=== PATIENT | female | born 1945 | race American Indian/Alaskan Native ===

== ENCOUNTER 2018-11-16 08:58 | Observation (INO) | payer MEDICARE ==
[2018-11-16] MEDS ORDERED: TYLENOL PO ONE (09:12)
[2018-11-16] MEDS ORDERED: NACL 0.9% 500 ML 500 ML IV ONE (09:12)
--- NOTE | 2018-11-16 09:14 | Emergency Department Report ---
ED GI Bleed HPI - General Chief complaint: GI Bleed Stated complaint: RECTAL BLEEDING Time Seen by Provider: 11/16/18 09:00 Source: patient, EMS (ems notes not available at time of chart dictation), RN notes reviewed Mode of arrival: Stretcher Limitations: No Limitations - History of Present Illness Initial comments: This is a 73-year-old female. This patient is not known to this provider previously. The patient does not know if she has a primary care doctor. Her past medical history includes COPD, and diverticulosis. Reports her last colonoscopy was performed in 2015, and [facility]. Presents to the ER with a complaint of sudden nontraumatic dark red rectal bleeding which started this evening. This is accompanied by chronic diffuse abdominal cramping, present 1 year. Patient reports not taking any systemic anticoagulation. She denies vomiting. She denies chest pain, and denies new or different shortness of breath. Symptoms constant, does not radiate anywhere, do not have exacerbating oral infectious. MD complaint: gross hematochezia -: Sudden Location: diffuse Quality: cramping Consistency: constant Improves with: none Worsens with: none Context: history of GI bleed - Related Data Home Medications Medication Instructions Recorded Confirmed Last Taken Acetaminophen [Tylenol Extra 500 mg PO BID 01/07/18 01/07/18 Unknown Strength] Primidone [Mysoline] 250 mg PO BID 01/07/18 01/07/18 Unknown Previous Rx's Medication Instructions Recorded Last Taken Type AtorvaSTATin [Lipitor] 40 mg PO QHS #30 tab 01/09/18 Unknown Rx Famotidine [Pepcid] 20 mg PO BID #60 tablet 01/09/18 Unknown Rx Fluticasone/Salmeterol [Advair 1 puff IH BID #1 disk.w.dev 01/09/18 Unknown Rx Diskus 250-50 mcg] Ondansetron [Zofran TAB] 4 mg PO Q8HR PRN #15 tablet 01/09/18 Unknown Rx Prednisone [predniSONE 10 mg 10 mg PO .TAPER #1 tab.ds.pk 01/09/18 Unknown Rx (6-Day Pack, 21 Tabs)] guaiFENesin/DEXTROMETHORPHAN 1 each PO TID PRN #15 capsule 01/09/18 Unknown Rx [Robitussin Nsylg-Hyyfl-Khyy Dm] levoFLOXacin [Levaquin TAB] 500 mg PO Q24HR #5 tablet 01/09/18 Unknown Rx Allergies Allergy/AdvReac Type Severity Reaction Status Date / Time aspirin Allergy Unknown Verified 01/07/18 21:52 ED Review of Systems ROS: Stated complaint: RECTAL BLEEDING Other details as noted in HPI Constitutional: denies: fever Eyes: denies: eye discharge ENT: congestion Respiratory: cough (chronic) Cardiovascular: denies: syncope Gastrointestinal: abdominal pain, hematochezia Genitourinary: denies: dysuria Musculoskeletal: arthralgia (chronic left upper extremity) Skin: denies: lesions Neurological: weakness Psychiatric: anxiety ED Past Medical Hx - Past Medical History Hx COPD: Yes - Surgical History Hx Cholecystectomy: Yes - Social History Smoking Status: Former Smoker - Medications Home Medications: Home Medications Medication Instructions Recorded Confirmed Last Taken Type Acetaminophen [Tylenol Extra 500 mg PO BID 01/07/18 01/07/18 Unknown History Strength] Primidone [Mysoline] 250 mg PO BID 01/07/18 01/07/18 Unknown History AtorvaSTATin [Lipitor] 40 mg PO QHS #30 tab 01/09/18 Unknown Rx Famotidine [Pepcid] 20 mg PO BID #60 tablet 01/09/18 Unknown Rx Fluticasone/Salmeterol [Advair 1 puff IH BID #1 disk.w.dev 01/09/18 Unknown Rx Diskus 250-50 mcg] Ondansetron [Zofran TAB] 4 mg PO Q8HR PRN #15 tablet 01/09/18 Unknown Rx Prednisone [predniSONE 10 mg 10 mg PO .TAPER #1 tab.ds.pk 01/09/18 Unknown Rx (6-Day Pack, 21 Tabs)] guaiFENesin/DEXTROMETHORPHAN 1 each PO TID PRN #15 capsule 01/09/18 Unknown Rx [Robitussin Ptdsc-Yslgb-Bfag Dm] levoFLOXacin [Levaquin TAB] 500 mg PO Q24HR #5 tablet 01/09/18 Unknown Rx ED Physical Exam - General Limitations: Other (patient appears anxious and tremulous) General appearance: alert, anxious - Head Head exam: Present: atraumatic, normocephalic - Eye Eye exam: Present: normal appearance, EOMI. Absent: nystagmus - ENT ENT exam: Present: normal exam, normal orophraynx, mucous membranes moist, normal external ear exam - Neck Neck exam: Present: normal inspection, full ROM. Absent: tenderness, meningismus - Respiratory Respiratory exam: Present: normal lung sounds bilaterally. Absent: respiratory distress - Cardiovascular Cardiovascular Exam: Present: regular rate, normal rhythm, normal heart sounds. Absent: bradycardia, tachycardia, irregular rhythm, systolic murmur, diastolic murmur, rubs, gallop - GI/Abdominal GI/Abdominal exam: Present: soft. Absent: distended, tenderness, guarding, rebound, rigid, pulsatile mass - Rectal Rectal exam: Present: other (external hemorrhoids noted. Dark red blood noted on rectal examination. Chaperoned by nurse Marcia Jackson) - Extremities Exam Extremities exam: Present: normal inspection, full ROM, other (2+ pulses noted in the bilateral upper, lower extremities. Compartments soft. No long bony tenderness. The pelvis is stable.). Absent: calf tenderness - Back Exam Back exam: Present: normal inspection, full ROM. Absent: tenderness, CVA tenderness (R), CVA tenderness (L), paraspinal tenderness, vertebral tenderness - Neurological Exam Neurological exam: Present: alert, other (Extraocular movements intact. Tongue midline. No facial droop. Facial sensation intact to light touch in the V1, V2, V3 distribution bilaterally. 5 and 5 strength in 4 extremities.. Sensation is intact to light touch in 4 extremities.). Absent: motor sensory deficit - Psychiatric Psychiatric exam: Present: anxious - Skin Skin exam: Present: warm, dry, intact, normal color. Absent: rash ED Course Vital Signs 11/16/18 11/16/18 11/16/18 09:20 10:52 12:01 Temperature 98.2 F Pulse Rate 88 75 77 Respiratory 31 H 27 H 27 H Rate Blood Pressure 141/93 Blood Pressure 141/93 139/90 132/78 [Right] O2 Sat by Pulse 96 96 96 Oximetry - Reevaluation(s) Reevaluation #1: 11/16/18 09:40 Differential diagnosis, including but not limited to, diverticulosis, diverticulitis, angiodysplasia, malignancy, constipation Assessment and plan: 73-year-old female with known history of diverticulosis, now with dark red blood per rectum, hemodynamically stable, soft abdomen, reported abdominal pain for one year. Currently, [address] scanner is down, and therefore a CT angiogram of the abdomen/pelvis is not feasible. We will treat the patient's symptoms, establish multiple IV access, obtained type and screen, and appropriate screening laboratory studies. We will obtain a CT scan of the abdomen and pelvis, and admitted to the medical service once initial diagnostics have resulted. The case was discussed with gastroenterology, Dr. Heath Domínguez, who agrees with this plan of care, and indicates his group can follow in consultation. I discussed this with patient, who indicated agreement with the plan, and understood me for admission. Reevaluation #2: 11/16/18 12:07 Dr Daniels to admit Reevaluation #3: 11/16/18 13:52 inpatient team agrees to follow up on ct a/p ED Medical Decision Making - Lab Data Result diagrams: 11/16/18 09:43 11/16/18 09:43 Vital Signs 11/16/18 09:20 Temperature 98.2 F Pulse Rate 88 Respiratory 31 H Rate Blood Pressure 141/93 Blood Pressure 141/93 [Right] O2 Sat by Pulse 96 Oximetry - EKG Data -: EKG Interpreted by Me EKG shows normal: sinus rhythm Rate: normal - EKG Data When compared to previous EKG there are: no significant change Interpretation: no acute changes 11/16/18 11:38 Compared to EKG from December 2017. Motion artifact, low voltage, sinus, 79 bpm, normal axis, QTC 477 ms, no endorsement of chest pain, this is an abnormal EKG, it is not consistent with ST elevation myocardial infarction. Critical care attestation.: If time is entered above; I have spent that time in minutes in the direct care of this critically ill patient, excluding procedure time. ED Disposition Clinical Impression: LGI bleed Disposition: OP ADMIT IP TO THIS HOSP Is pt being admited?: Yes Does the pt Need Aspirin: No Condition: Fair
[2018-11-16 10:25] LABS: Basophils # (Auto) 0.1 K/mm3 (0.0-0.1); Basophils % (Auto) 0.9 % (0.0-1.8); Eosinophils # (Auto) 0.1 K/mm3 (0.0-0.4); Eosinophils % (Auto) 1.4 % (0.0-4.3); Hematocrit 42.6 % (30.3-42.9); Lymphocytes # (Auto) 2.2 K/mm3 (1.2-5.4); Lymphocytes % (Auto) 20.9 % (13.4-35.0); Mean Corpuscular HGB Conc 35 % (30-34); Mean Corpuscular Hemoglobin 32 pg (28-32); Mean Corpuscular Volume 90 fl (79-97); Monocytes # (Auto) 0.8 K/mm3 (0.0-0.8); Monocytes % (Auto) 7.9 % (0.0-7.3); Red Blood Count 4.72 M/mm3 (3.65-5.03); Red Cell Distribution Width 12.3 % (13.2-15.2)
[2018-11-16 10:26] LABS: Platelet Count 220 K/mm3 (140-440)
[2018-11-16 10:36] LABS: INR 0.96 (0.87-1.13)
[2018-11-16 10:37] LABS: Partial Thromboplastin Time 20.2 Sec. (24.2-36.6)
[2018-11-16 10:52] LABS: Alanine Aminotransferase 15 units/L (7-56); Albumin 3.4 g/dL (3.9-5); BUN/Creatinine Ratio 28; Blood Urea Nitrogen 11 mg/dL (7-17); Calcium 8.4 mg/dL (8.4-10.2); Hemolysis Index 14
[2018-11-16 12:18] LABS: Bilirubin,Urine NEG (Negative); Blood,Urine SM (Negative); Color,Urine Yellow (Yellow); Mucus,Urine FEW /HPF; Protein,Urine <15 mg/dL mg/dL (Negative); Urobilinogen,Urine < 2.0 mg/dL (<2.0)
[2018-11-16] MEDS ORDERED: CARAFATE PO ONE (13:49)
[2018-11-16] MEDS ORDERED: CARAFATE ONE (13:56)
[2018-11-16] MEDS ORDERED: TYLENOL PO PRN (17:32)
[2018-11-16] MEDS ORDERED: SODIUM CHLORIDE FLUSH SYRINGE 10 ML IV PRN (17:32)
[2018-11-16] MEDS: DILAUDID IV PRN ×2 (19:02→23:23)
[2018-11-16] MEDS: D5/0.45NS 1,000 ML IV SCH (19:03)
--- NOTE | 2018-11-16 19:08 | Cat Scan Report ---
CT abdomen pelvis w con INDICATION / CLINICAL INFORMATION: Generalized abd pain. gi bleed. TECHNIQUE: Axial CT imaging of abdomen and pelvis was performed with IV contrast only. Coronal and sagittal refo rmatted imaging obtained and reviewed. All CT scans at this location are performed using CT dose redu ction for ALARA by means of automated exposure control. COMPARISON: None available. FINDINGS: CT abdomen with contrast demonstrates grossly normal appearance of the liver, spleen, pancreas, kidne ys, and adrenal glands. Incidentally noted is a small simple cyst in the upper pole of the right kidn ey noted 1.6 cm. Prior cholecystectomy. No biliary dilatation identified. CT pelvis with contrast demonstrates prominent diverticulosis throughout the sigmoid and descending c olon. There is subtle inflammatory change in the proximal sigmoid colon suggesting mild diverticuliti s. No pelvic mass, free fluid, or other inflammatory change identified. The remainder of the GI tract appears within normal limits. No appendix is identified. Visualized lung bases are clear. Review of osseous structures shows diffuse spondylytic change and multilevel degenerative disc disea se throughout the lumbar spine. IMPRESSION: 1. Mild sigmoid diverticulitis. Prominent diverticulosis throughout the sigmoid and descending colon. Signer Name: Dea Rees MD Signed: 11/16/2018 7:03 PM Workstation Name: [id number]
[2018-11-16] MEDS: ZOFRAN IV PRN (19:11)
[2018-11-16 19:29] LABS: Hemoglobin 14.5 gm/dl (10.1-14.3)
--- NOTE | 2018-11-16 21:47 | History and Physical Report ---
History of Present Illness Date of examination: 11/16/18 Date of admission: 11/16/18 12:07 Chief complaint: Bright red blood per rectum since yesterday evening History of present illness: 73-year-old -[place] female with history of diverticulosis and lower GI bleed in the past, also history of asthma, hyperlipidemia comes in for bright red blood per rectum since yesterday. Diffuse cramping abdominal pain present. Patient says she has no similar episodes in the past but no colectomy was done. No lightheadedness or syncope. No chest pain. No diaphoresis Past Medical History COPD Diverticulosis HLD Surgical History Cholecystectomy Social History Smoking Status: Former Smoker Family history Htn Review of Systems ROS: Stated complaint: RECTAL BLEEDING Other details as noted in HPI Constitutional: denies: fever Eyes: denies: eye discharge ENT: congestion Respiratory: cough (chronic) Cardiovascular: denies: syncope Gastrointestinal: abdominal pain, hematochezia Genitourinary: denies: dysuria Musculoskeletal: arthralgia (chronic left upper extremity) Skin: denies: lesions Neurological: weakness Psychiatric: anxiety Medications and Allergies Allergies Allergy/AdvReac Type Severity Reaction Status Date / Time aspirin Allergy Unknown Verified 01/07/18 21:52 Home Medications Medication Instructions Recorded Confirmed Last Taken Type Acetaminophen [Tylenol Extra 500 mg PO BID 01/07/18 11/16/18 Unknown History Strength] Primidone [Mysoline] 250 mg PO BID 01/07/18 11/16/18 Unknown History AtorvaSTATin [Lipitor] 40 mg PO QHS #30 tab 01/09/18 11/16/18 Unknown Rx Famotidine [Pepcid] 20 mg PO BID #60 tablet 01/09/18 11/16/18 Unknown Rx Fluticasone/Salmeterol [Advair 1 puff IH BID #1 disk.w.dev 01/09/18 11/16/18 Unknown Rx Diskus 250-50 mcg] Ondansetron [Zofran TAB] 4 mg PO Q8HR PRN #15 tablet 01/09/18 11/16/18 Unknown Rx Prednisone [predniSONE 10 mg 10 mg PO .TAPER #1 tab.ds.pk 01/09/18 11/16/18 Unknown Rx (6-Day Pack, 21 Tabs)] guaiFENesin/DEXTROMETHORPHAN 1 each PO TID PRN #15 capsule 01/09/18 11/16/18 Unknown Rx [Robitussin Omtdd-Srkoh-Wcgi Dm] levoFLOXacin [Levaquin TAB] 500 mg PO Q24HR #5 tablet 01/09/18 11/16/18 Unknown Rx Active Meds: Active Medications Acetaminophen (Tylenol) 650 mg PO Q4H PRN PRN Reason: Pain MILD(1-3)/Fever >100.5/DEMPSEY Famotidine (Pepcid) 20 mg IV BID DORIS Hydromorphone HCl (Dilaudid) 0.5 mg IV Q3H PRN PRN Reason: Pain , Severe (7-10) Last Admin: 11/16/18 19:02 Dose: 0.5 mg Documented by: Dextrose/Sodium Chloride (D5/0.45ns) 1,000 mls @ 100 mls/hr IV DIRECT DORIS Last Admin: 11/16/18 19:03 Dose: 100 mls/hr Documented by: Metoclopramide HCl (Reglan) 10 mg IV Q6H PRN PRN Reason: Nausea And Vomiting Ondansetron HCl (Zofran) 4 mg IV Q8H PRN PRN Reason: Nausea And Vomiting Last Admin: 11/16/18 19:11 Dose: 4 mg Documented by: Sodium Chloride (Sodium Chloride Flush Syringe 10 Ml) 10 ml IV BID DORIS Sodium Chloride (Sodium Chloride Flush Syringe 10 Ml) 10 ml IV PRN PRN PRN Reason: LINE FLUSH Exam - Constitutional Vitals: Temp Pulse Resp BP Pulse Ox 98.1 F 74 24 126/75 90 11/16/18 20:34 11/16/18 20:34 11/16/18 20:34 11/16/18 20:34 11/16/18 20:34 General appearance: Present: no acute distress, well-nourished - EENT Eyes: Present: PERRL ENT: hearing intact, clear oral mucosa - Neck Neck: Present: supple, normal ROM - Respiratory Respiratory effort: normal Respiratory: bilateral: CTA - Cardiovascular Heart rate: 78 Rhythm: regular Heart Sounds: Present: S1 & S2. Absent: rub, click - Extremities Extremities: no ischemia, pulses intact, pulses symmetrical, No edema Peripheral Pulses: within normal limits - Abdominal General gastrointestinal: Present: soft, non-tender, non-distended, normal bowel sounds Female genitourinary: Present: normal - Rectal Rectal Exam: stool bloody - Integumentary Integumentary: Present: clear, warm, dry - Musculoskeletal Musculoskeletal: gait normal, strength equal bilaterally - Psychiatric Psychiatric: appropriate mood/affect, intact judgment & insight - Neurologic Neurologic: CNII-XII intact, moves all extremities - Allied Health Allied health notes reviewed: nursing, case management Results - Labs CBC & Chem 7: 11/16/18 18:53 11/16/18 09:43 Labs: Laboratory Last Values WBC 10.3 K/mm3 (4.5-11.0) 11/16/18 09:43 RBC 4.72 M/mm3 (3.65-5.03) 11/16/18 09:43 Hgb 14.5 gm/dl (10.1-14.3) H 11/16/18 18:53 Hct 42.0 % (30.3-42.9) 11/16/18 18:53 MCV 90 fl (79-97) 11/16/18 09:43 MCH 32 pg (28-32) 11/16/18 09:43 MCHC 35 % (30-34) H 11/16/18 09:43 RDW 12.3 % (13.2-15.2) L 11/16/18 09:43 Plt Count 220 K/mm3 (140-440) 11/16/18 09:43 Lymph % (Auto) 20.9 % (13.4-35.0) 11/16/18 09:43 [place] % (Auto) 7.9 % (0.0-7.3) H 11/16/18 09:43 Eos % (Auto) 1.4 % (0.0-4.3) 11/16/18 09:43 Baso % (Auto) 0.9 % (0.0-1.8) 11/16/18 09:43 Lymph # 2.2 K/mm3 (1.2-5.4) 11/16/18 09:43 [place] # 0.8 K/mm3 (0.0-0.8) 11/16/18 09:43 Eos # 0.1 K/mm3 (0.0-0.4) 11/16/18 09:43 Baso # 0.1 K/mm3 (0.0-0.1) 11/16/18 09:43 Seg Neutrophils % 68.9 % (40.0-70.0) 11/16/18 09:43 Seg Neutrophils # 7.1 K/mm3 (1.8-7.7) 11/16/18 09:43 PT 12.5 Sec. (12.2-14.9) 11/16/18 09:43 INR 0.96 (0.87-1.13) 11/16/18 09:43 APTT 20.2 Sec. (24.2-36.6) L 11/16/18 09:43 Sodium 143 mmol/L (137-145) 11/16/18 09:43 Potassium 3.5 mmol/L (3.6-5.0) L 11/16/18 09:43 Chloride 105.2 mmol/L (98-107) 11/16/18 09:43 Carbon Dioxide 23 mmol/L (22-30) 11/16/18 09:43 18 mmol/L 11/16/18 09:43 BUN 11 mg/dL (7-17) 11/16/18 09:43 0.4 mg/dL (0.7-1.2) L 11/16/18 09:43 Estimated GFR > 60 ml/min 11/16/18 09:43 28 % 11/16/18 09:43 Glucose 92 mg/dL (65-100) 11/16/18 09:43 4.7 % (4-6) 11/16/18 18:53 Calcium 8.4 mg/dL (8.4-10.2) 11/16/18 09:43 Magnesium 2.00 mg/dL (1.7-2.3) 11/16/18 09:43 0.60 mg/dL (0.1-1.2) 11/16/18 09:43 AST 16 units/L (5-40) 11/16/18 09:43 ALT 15 units/L (7-56) 11/16/18 09:43 89 units/L (35-129) 11/16/18 09:43 6.6 g/dL (6.3-8.2) 11/16/18 09:43 3.4 g/dL (3.9-5) L 11/16/18 09:43 1.1 % 11/16/18 09:43 33 units/L (13-60) 11/16/18 09:43 Yellow (Yellow) 11/16/18 11:38 Clear (Clear) 11/16/18 11:38 5.0 (5.0-7.0) 11/16/18 11:38 Ur Specific [place] 1.021 (1.003-1.030) 11/16/18 11:38 <15 mg/dl mg/dL (Negative) 11/16/18 11:38 Neg mg/dL (Negative) 11/16/18 11:38 Neg mg/dL (Negative) 11/16/18 11:38 Sm (Negative) 11/16/18 11:38 Neg (Negative) 11/16/18 11:38 Neg (Negative) 11/16/18 11:38 < 2.0 mg/dL (<2.0) 11/16/18 11:38 Ur Leukocyte Esterase Neg (Negative) 11/16/18 11:38 1.0 /HPF (0.0-6.0) 11/16/18 11:38 2.0 /HPF (0.0-6.0) 11/16/18 11:38 U Epithel Cells (Auto) 1.0 /HPF (0-13.0) 11/16/18 11:38 Few /HPF 11/16/18 11:38 Blood Type O POSITIVE 11/16/18 10:16 Antibody Screen Negative 11/16/18 10:16 - Imaging and Cardiology EKG: report reviewed (sinus rhythm heart rate of 78/m) CT scan - abdomen: report reviewed Imaging and Cardiology: CT abdomen IMPRESSION: 1. Mild sigmoid diverticulitis. Prominent diverticulosis throughout the sigmoid and descending colon. Assessment and Plan Advance Directives: Yes (full code) VTE prophylaxis?: Chemical, Mechanical Plan of care discussed with patient/family: Yes - Patient Problems (1) Lower gastrointestinal bleed Current Visit: Yes Status: Acute Plan to address problem: Monitor hemoglobin and hematocrit every 8 hours Transfuse if necessary GI consult requested Patient apparently had multiple diverticular bleeds No colectomy was done (2) COPD (chronic obstructive pulmonary disease) Current Visit: Yes Status: Chronic Qualifiers: COPD type: unspecified COPD Qualified Code(s): J44.9 - Chronic obstructive pulmonary disease, unspecified Plan to address problem: Continue nebulizer treatments (3) GERD (gastroesophageal reflux disease) Current Visit: Yes Status: Chronic Qualifiers: Esophagitis presence: with esophagitis Qualified Code(s): K21.0 - Gastro- esophageal reflux disease with esophagitis Plan to address problem: IV famotidine for now (4) Hyperlipidemia Current Visit: Yes Status: Acute Plan to address problem: Hold statins (5) Malnutrition Current Visit: Yes Status: Chronic Qualifiers: Protein-calorie malnutrition severity: mild Plan to address problem: Dietitian consults requested (6) Diverticulitis Current Visit: Yes Status: Acute Plan to address problem: No evidence of diverticulitis Extensive diverticulosis No antibiotics needed at this point (7) DVT prophylaxis Current Visit: Yes Status: Acute Plan to address problem: On SCDs and GI prophylaxis
[2018-11-16] MEDS ORDERED: PULMICORT IH SCH (22:15)
[2018-11-16] MEDS ORDERED: NON-FORMULARY (Fluticasone/Salmeterol [Advair Diskus 250-50 Mcg] 1 PUFF) IH SCH (22:15)
[2018-11-16] MEDS ORDERED: BROVANA NEBU IH SCH (22:15)
[2018-11-16] MEDS: PEPCID IV SCH (23:10)
[2018-11-16] MEDS: SODIUM CHLORIDE FLUSH SYRINGE 10 ML IV SCH (23:12)
[2018-11-16] MEDS: REGLAN IV PRN (23:22)
[2018-11-17] MEDS: D5/0.45NS 1,000 ML IV SCH (04:01)
[2018-11-17] MEDS: DILAUDID IV PRN (04:03)
[2018-11-17] MEDS: ZOFRAN IV PRN (04:03)
[2018-11-17 06:21] LABS: Basophils # (Auto) 0.1 K/mm3 (0.0-0.1); Basophils % (Auto) 0.6 % (0.0-1.8); Eosinophils % (Auto) 0.2 % (0.0-4.3); Hematocrit 40.4 % (30.3-42.9); Hemoglobin 13.8 gm/dl (10.1-14.3); Lymphocytes # (Auto) 1.7 K/mm3 (1.2-5.4); Lymphocytes % (Auto) 19.4 % (13.4-35.0); Mean Corpuscular HGB Conc 34 % (30-34); Mean Corpuscular Hemoglobin 32 pg (28-32); Mean Corpuscular Volume 92 fl (79-97); Monocytes # (Auto) 0.7 K/mm3 (0.0-0.8); Monocytes % (Auto) 7.9 % (0.0-7.3); Platelet Count 228 K/mm3 (140-440); Red Blood Count 4.37 M/mm3 (3.65-5.03); Red Cell Distribution Width 12.1 % (13.2-15.2)
[2018-11-17 06:43] LABS: BUN/Creatinine Ratio 20; Blood Urea Nitrogen 8 mg/dL (7-17); Calcium 8.4 mg/dL (8.4-10.2)
[2018-11-17 06:44] LABS: Alanine Aminotransferase 15 units/L (7-56); Albumin 3.7 g/dL (3.9-5); Hemolysis Index 10
[2018-11-17] MEDS ORDERED: DUONEB *Not for PRN Use IH SCH (08:00)
[2018-11-17] MEDS: REGLAN IV PRN (08:48)
[2018-11-17 09:56] LABS: Hematocrit 39.7 % (30.3-42.9); Hemoglobin 13.8 gm/dl (10.1-14.3)
[2018-11-17] MEDS: PEPCID IV SCH (10:04)
[2018-11-17] MEDS: SODIUM CHLORIDE FLUSH SYRINGE 10 ML IV SCH (10:05)
--- NOTE | 2018-11-17 11:12 | Consultation ---
REFERRING PHYSICIAN: Dr. Ronald Zabala. INDICATION: Rectal bleeding. HISTORY OF PRESENT ILLNESS: The patient is a 73-year-old black female presents with rectal bleeding. The patient reports she has had a history of rectal bleeding and reports a history of diverticular disease. She reports in 2016, she had 4 colonoscopies and had to be transfused. She reports though she has not had any rectal bleeding in over a year. The patient reports this morning she had a single bout of bright red blood per rectum with clots. She reports no recent diet or medication changes. She reports no upper GI symptoms including nausea, vomiting, heartburn, reflux, indigestion. The patient became concerned, was brought by her son to the Emergency Room. The patient reports that she has had no further bleeding. Denies any other specific GI complaints except for some lower abdominal cramping. PAST MEDICAL HISTORY: High cholesterol, COPD. PAST SURGICAL HISTORY: Status post cholecystectomy. MEDICATIONS: Reviewed and updated in chart. ALLERGIES: No known drug allergies. SOCIAL HISTORY: Former smoker. Denies alcohol. FAMILY HISTORY: Negative for colon cancer, IBD, or liver disease. REVIEW OF SYSTEMS: GENERAL: Reports mild weakness. HEENT: No visual complaints or tinnitus. PULMONARY: No shortness of breath. No cough. No chest pain. GASTROINTESTINAL: Reports rectal bleeding. All points of 13-point review of systems otherwise negative. PHYSICAL EXAMINATION: VITAL SIGNS: Temperature of 98.2, pulse 88, respirations 18, blood pressure 141/93. GENERAL: Fairly nourished black female in no acute distress. HEENT: Pupils are round and reactive. PULMONARY: Clear to auscultation bilaterally. CARDIOVASCULAR: Regular rhythm. Normal S1, S2. ABDOMEN: Positive bowel sounds, soft. SKIN: No obvious rashes. LABORATORY DATA: Labs pertinent for white count of 10.3, hemoglobin and hematocrit of 15 and 42.6, platelet count of 220. Coags within normal limits. Chem-7 within normal limits. LFTs within normal limits. ASSESSMENT: A 73-year-old black female with a reported history of diverticular bleed in the past, but not recently, now presents with one bout of rectal bleeding. The patient reports no further bleeding since that time. Her H and H is stable. Do suspect diverticular bleed. Management is noted below. PLAN: 1. Follow hematocrit and transfuse as needed. 2. PPI daily. 3. Avoid NSAIDs and aspirin. 4. We will hold on repeat colonoscopy unless signs of further active bleeding. 5. We will follow. JOB# [id number] ILIANA/NTS
[2018-11-17 11:35] VITALS: BP 146/85
--- NOTE | 2018-11-17 11:46 | Discharge Summary ---
Providers - Providers Date of Admission: 11/16/18 12:07 Attending physician: NELY MILLER MD 11/16/18 09:12 Consult to Physician [CONS] Urgent Comment: called answ. serv./ pradeep Consulting Provider: KEYLA KONG Physician Instructions: Reason For Exam: lgig, ? tics Primary care physician: DL SHEEHAN Hospitalization Condition: Fair Hospital course: (1) Lower gastrointestinal bleed Current Visit: Yes Status: Acute Plan to address problem: Monitor hemoglobin and hematocrit every 8 hours Transfuse if necessary GI consult requested Patient apparently had multiple diverticular bleeds No colectomy was done (2) COPD (chronic obstructive pulmonary disease) Current Visit: Yes Status: Chronic Qualifiers: COPD type: unspecified COPD Qualified Code(s): J44.9 - Chronic obstructive pulmonary disease, unspecified Plan to address problem: Continue nebulizer treatments (3) GERD (gastroesophageal reflux disease) Current Visit: Yes Status: Chronic Qualifiers: Esophagitis presence: with esophagitis Qualified Code(s): K21.0 - Gastro- esophageal reflux disease with esophagitis Plan to address problem: IV famotidine for now (4) Hyperlipidemia Current Visit: Yes Status: Acute Plan to address problem: Hold statins (5) Malnutrition Current Visit: Yes Status: Chronic Qualifiers: Protein-calorie malnutrition severity: mild Plan to address problem: Dietitian consults requested (6) Diverticulitis Current Visit: Yes Status: Acute Plan to address problem: No evidence of diverticulitis Extensive diverticulosis No antibiotics needed at this point (7) DVT prophylaxis Current Visit: Yes Status: Acute Plan to address problem: On SCDs and GI prophylaxis Disposition: DC- TO HOME OR SELFCARE Time spent for discharge: 33 mins Core Measure Documentation - Palliative Care Palliative Care/ Comfort Measures: Not Applicable - Core Measures Any of the following diagnoses?: none Exam - Constitutional Vitals: Temp Pulse Resp BP Pulse Ox 97.8 F 65 18 146/85 98 11/17/18 08:05 11/17/18 08:50 11/17/18 08:50 11/17/18 11:35 11/17/18 08:22 General appearance: Present: no acute distress, well-nourished - EENT Eyes: Present: PERRL ENT: hearing intact, clear oral mucosa - Neck Neck: Present: supple, normal ROM - Respiratory Respiratory effort: normal Respiratory: bilateral: CTA - Cardiovascular Heart Sounds: Present: S1 & S2. Absent: rub, click - Extremities Extremities: pulses symmetrical, No edema Peripheral Pulses: within normal limits - Abdominal General gastrointestinal: Present: soft, non-tender, non-distended, normal bowel sounds Female genitourinary: Present: normal - Integumentary Integumentary: Present: clear, warm, dry - Musculoskeletal Musculoskeletal: gait normal, strength equal bilaterally - Psychiatric Psychiatric: appropriate mood/affect, intact judgment & insight - Neurologic Neurologic: CNII-XII intact, moves all extremities Plan Follow up with: DL SHEEHAN MD [Primary Care Provider] - 3-5 Days Forms: Accompanied Note
--- NOTE | 2018-11-17 16:55 | Gastroenterology Consultation ---
History of Present Illness - Reason for Consult Consult date: 11/17/18 GI bleed Requesting physician: GEORGE CHIN - History of Present Illness This is a pleasant 73-year-old female medical history significant for prior diverticular bleed who presents with rectal bleeding. She reports that last year had multiple episodes of rectal bleeding requiring multiple admissions to the hospital however she reports that she has not had bleeding since last year until this time. She reports yesterday she saw some rectal bleeding, much lower volume than her prior rectal bleeds. She reports that she was diagnosed with diverticular bleeding in the past. She reports since overnight not seeing any active bleeding. Her hemoglobin is stable. Minimal abdominal pain. Past Medical History COPD Diverticulosis HLD Surgical History Cholecystectomy Social History Smoking Status: Former Smoker Family history Htn Home meds reviewed, reconciled, and updated Medications and Allergies Allergies Allergy/AdvReac Type Severity Reaction Status Date / Time aspirin Allergy Unknown Verified 01/07/18 21:52 Home Medications Medication Instructions Recorded Confirmed Last Taken Type Acetaminophen [Tylenol Extra 500 mg PO BID 01/07/18 11/16/18 Unknown History Strength] Primidone [Mysoline] 250 mg PO BID 01/07/18 11/16/18 Unknown History AtorvaSTATin [Lipitor] 40 mg PO QHS #30 tab 01/09/18 11/16/18 Unknown Rx Famotidine [Pepcid] 20 mg PO BID #60 tablet 01/09/18 11/16/18 Unknown Rx Fluticasone/Salmeterol [Advair 1 puff IH BID #1 disk.w.dev 01/09/18 11/16/18 Unknown Rx Diskus 250-50 mcg] Ondansetron [Zofran TAB] 4 mg PO Q8HR PRN #15 tablet 01/09/18 11/16/18 Unknown Rx guaiFENesin/DEXTROMETHORPHAN 1 each PO TID PRN #15 capsule 01/09/18 11/16/18 Unknown Rx [Robitussin Tsfor-Qtsnc-Nevo Dm] Review of Systems - Review of Systems All systems: negative Gastrointestinal: abdominal pain, BRBPR Exam - Constitutional Vital Signs: Temp Pulse Resp BP Pulse Ox 97.8 F 65 18 146/85 98 11/17/18 08:05 11/17/18 08:50 11/17/18 08:50 11/17/18 11:35 11/17/18 08:22 General appearance: no acute distress - EENT ENT: hearing intact - Neck Neck: supple - Respiratory Respiratory: bilateral: CTA - Cardiovascular Rhythm: regular - Gastrointestinal General gastrointestinal: Present: soft - Integumentary Integumentary: Present: dry - Neurologic Neurological: alert and oriented x3 - Psychiatric Psychiatric: appropriate mood/affect - Labs CBC & Chem 7: 11/17/18 09:40 11/17/18 04:07 Lab Results: Laboratory Results - last 24 hr 11/16/18 11/16/18 11/17/18 18:53 18:53 04:07 WBC 8.9 RBC 4.37 Hgb 14.5 H 13.8 Hct 42.0 40.4 MCV 92 MCH 32 MCHC 34 RDW 12.1 L Plt Count 228 Lymph % (Auto) 19.4 [place] % (Auto) 7.9 H Eos % (Auto) 0.2 Baso % (Auto) 0.6 Lymph # 1.7 [place] # 0.7 Eos # 0.0 Baso # 0.1 Seg Neutrophils % 71.9 H Seg Neutrophils # 6.4 Sodium Potassium Chloride Carbon Dioxide Anion Gap BUN Creatinine Estimated GFR BUN/Creatinine Ratio Glucose Hemoglobin A1c 4.7 Calcium Total Bilirubin AST ALT Alkaline Phosphatase Total Protein Albumin Albumin/Globulin Ratio 11/17/18 11/17/18 04:07 09:40 WBC RBC Hgb 13.8 Hct 39.7 MCV MCH MCHC RDW Plt Count Lymph % (Auto) [place] % (Auto) Eos % (Auto) Baso % (Auto) Lymph # [place] # Eos # Baso # Seg Neutrophils % Seg Neutrophils # Sodium 143 Potassium 4.1 Chloride 103.3 Carbon Dioxide 25 Anion Gap 19 BUN 8 Creatinine 0.4 L Estimated GFR > 60 BUN/Creatinine Ratio 20 Glucose 142 H Hemoglobin A1c Calcium 8.4 Total Bilirubin 0.60 AST 17 ALT 15 Alkaline Phosphatase 79 Total Protein 6.2 L Albumin 3.7 L Albumin/Globulin Ratio 1.5 Assessment and Plan Most consistent with mild diverticular bleed. The bleeding has stopped and her hemoglobin is stable. She therefore does not require inpatient colonoscopy and from GI standpoint can be discharged home though she should follow-up with us as an outpatient - Patient Problems (1) LGI bleed Status: Acute
== END 2018-11-17 13:07 | disposition home or self-care (01) ==
LOC: ED 08:58 → 2B-ACE 12:07
PROVIDERS: ADMIT Internal Medicine; ATTEND Internal Medicine
DX: K57.92 Diverticulitis of intestine, part unspecified, without perforation or abscess without bleeding (principal); J44.9 Chronic obstructive pulmonary disease, unspecified; K21.9 Gastro-esophageal reflux disease without esophagitis; E78.5 Hyperlipidemia, unspecified; E46 Unspecified protein-calorie malnutrition; Z90.49 Acquired absence of other specified parts of digestive tract; Z87.891 Personal history of nicotine dependence
CPT/HCPCS: 36415; 74177; 80053; 81001; 82271; 83036; 83690; 83735; 85014; 85018; 85025; 85610; 85730; 86850; 86900; 86901; 87086; 93005; 93010; 94640; 94760; 96374; 96375; 96376; 99284; G0378; J1170; J2405; J2765; J7040; Q9967

== ENCOUNTER 2020-08-04 08:49 | Observation (INO) | payer MEDICARE ==
[2020-08-04] MEDS ORDERED: ACETAMINOPHEN 500 MG TAB PO ONE (09:06)
--- NOTE | 2020-08-04 09:58 | Emergency Department Report ---
ED Fall HPI - General Chief Complaint: Fall Stated Complaint: FALL X 4DAYS/LEG PAIN Time Seen by Provider: 08/04/20 09:05 Source: patient, EMS Mode of arrival: Wheelchair - History of Present Illness Initial Comments: Patient is a pleasant 75-year-old female that comes to the emergency room today complaining of right rib pain. This was her initial complaint in triage but when she came back to [facility] an H&P was completed the patient reports that on Sunday she had passed out. She had no prodrome leading up to passing out. She states that she went to the bathroom to wash her hands and the next thing she knew she was on the floor. 911 was called and they came to the house but she refused transport. She denies any LOC. She lives with her son and his family. Today she comes complaining of this rib pain stating that she is having difficulty taking deep breaths because of the pain. She does have COPD and is a prior smoker but she is not wheezing and denies any shortness of breath. She does endorse intermittent chest pain not associated with wheezing. She describes it as a tightness. Nothing makes it better or worse. Patient denies cardiac history. She does have a history of hyperlipidemia. Patient is not having chest pain at the current time. Patient has not had a cardiac work-up that is in the EMR. On further exam the patient is complaining of 1. Passing out/syncope 2. Right rib pain 3. Right leg pain 4. Right wrist pain. Patient has taken nothing prior prior to arrival for her pain. Her family brought her to the emergency room. She is admitted to [facility] via wheelchair. Complaint: fall Fall From: standing When Fall Occurred: other Fall Witnessed: no Place Fall Occurred: home Loss of Consciousness: none Prolonged Down Time?: no Symptoms Prior to Fall: dizziness Severity: moderate Context: other Associated Symptoms: denies - Related Data Home Medications Medication Instructions Recorded Confirmed Last Taken Primidone [Mysoline] 250 mg PO BID 01/07/18 11/16/18 Unknown Previous Rx's Medication Instructions Recorded Last Taken Type AtorvaSTATin [Lipitor] 40 mg PO QHS #30 tab 01/09/18 Unknown Rx Famotidine [Pepcid] 20 mg PO BID #60 tablet 01/09/18 Unknown Rx Fluticasone/Salmeterol [Advair 1 puff IH BID #1 disk.w.dev 01/09/18 Unknown Rx Diskus 250-50 mcg] Allergies Allergy/AdvReac Type Severity Reaction Status Date / Time aspirin Allergy Unknown Verified 01/07/18 21:52 ED Review of Systems ROS: Stated complaint: FALL X 4DAYS/LEG PAIN Other details as noted in HPI Comment: All other systems reviewed and negative ED Past Medical Hx - Past Medical History Previous Medical History?: Yes Hx Hypertension: No Hx CVA: No Hx Heart Attack/AMI: No Hx Congestive Heart Failure: No Hx Diabetes: No Hx Deep Vein Thrombosis: No Hx Pulmonary Embolism: No Hx GERD: Yes Hx Liver Disease: No Hx Renal Disease: No Hx of Cancer: No Hx Sickle Cell Disease: No Hx Arthritis: Yes (SPINE) Hx Headaches / Migraines: No Hx Seizures: No (DENIES) Hx Kidney Stones: No Hx Psychiatric Treatment: No Hx Asthma: No Hx COPD: Yes Hx Tuberculosis: No Hx Dementia: No Hx HIV: No (DENIES) Additional medical history: hx of diverticulitis, HLD, TREMOR - Surgical History Past Surgical History?: Yes Hx Cholecystectomy: Yes - Family History Family history: other (MOM DEC ALZ DEMENTIA AND DAD DEC LUNG DISEASE) - Social History Smoking Status: Former Smoker (STOPPED 3 Y AGO) Substance Use Type: None - Medications Home Medications: Home Medications Medication Instructions Recorded Confirmed Last Taken Type Primidone [Mysoline] 250 mg PO BID 01/07/18 11/16/18 Unknown History AtorvaSTATin [Lipitor] 40 mg PO QHS #30 tab 01/09/18 11/16/18 Unknown Rx Famotidine [Pepcid] 20 mg PO BID #60 tablet 01/09/18 11/16/18 Unknown Rx Fluticasone/Salmeterol [Advair 1 puff IH BID #1 disk.w.dev 01/09/18 11/16/18 Unknown Rx Diskus 250-50 mcg] ED Physical Exam - General Limitations: No Limitations General appearance: alert - Head Head exam: Present: atraumatic, normocephalic - Eye Eye exam: Present: normal appearance - ENT ENT exam: Present: mucous membranes moist - Neck Neck exam: Present: normal inspection - Respiratory Respiratory exam: Present: normal lung sounds bilaterally. Absent: respiratory distress - Cardiovascular Cardiovascular Exam: Present: regular rate, normal rhythm. Absent: systolic mu rmur, diastolic murmur, rubs, gallop - GI/Abdominal GI/Abdominal exam: Present: soft, normal bowel sounds - Extremities Exam Extremities exam: Present: normal inspection - Back Exam Back exam: Present: normal inspection - Neurological Exam Neurological exam: Present: alert, oriented X3, other (FINE TREMOR) - Psychiatric Psychiatric exam: Present: normal affect, normal mood - Skin Skin exam: Present: warm, dry, intact, other (BRUISNG RUE; OLD APPEARING VASCULAR DISCOLORATION OF RLE WITH SWELLING ). Absent: rash ED Course Vital Signs 08/04/20 08/04/20 08:55 09:33 Temperature 98.5 F Pulse Rate 97 H Respiratory 20 22 Rate Blood Pressure 130/70 O2 Sat by Pulse 95 Oximetry ED Medical Decision Making - Lab Data Result diagrams: 08/04/20 10:54 08/04/20 10:54 - EKG Data EKG shows normal: sinus rhythm - EKG Data When compared to previous EKG there are: previous EKG unavailable Interpretation: nonspecific ST-T wave natasha - Radiology Data Radiology results: report reviewed, image reviewed NAP - Medical Decision Making Patient staffed with Dr. Dejesus Lab Results 08/04/20 08/04/20 Range/Units 10:54 10:54 WBC 7.9 (4.5-11.0) K/mm3 RBC 4.82 (3.65-5.03) M/mm3 Hgb 14.8 H (10.1-14.3) gm/dl Hct 42.9 (30.3-42.9) % MCV 89 (79-97) fl MCH 31 (28-32) pg MCHC 35 H (30-34) % RDW 13.0 L (13.2-15.2) % Plt Count 269 (140-440) K/mm3 Lymph % (Auto) 17.0 (13.4-35.0) % [place] % (Auto) 10.1 H (0.0-7.3) % Eos % (Auto) 0.7 (0.0-4.3) % Baso % (Auto) 0.6 (0.0-1.8) % Lymph # (Auto) 1.3 (1.2-5.4) K/mm3 [place] # (Auto) 0.8 (0.0-0.8) K/mm3 Eos # (Auto) 0.1 (0.0-0.4) K/mm3 Baso # (Auto) 0.1 (0.0-0.1) K/mm3 Seg Neutrophils % 71.6 H (40.0-70.0) % Seg Neutrophils # 5.7 (1.8-7.7) K/mm3 Sodium 140 (137-145) mmol/L Potassium 3.9 (3.6-5.0) mmol/L Chloride 102.7 (98-107) mmol/L Carbon Dioxide 31 H (22-30) mmol/L Anion Gap 10 mmol/L BUN 7 (7-17) mg/dL Creatinine 0.4 L (0.6-1.2) mg/dL Estimated GFR > 60 ml/min BUN/Creatinine Ratio 18 % Glucose 105 H (65-100) mg/dL Calcium 9.0 (8.4-10.2) mg/dL Total Bilirubin 0.80 (0.1-1.2) mg/dL AST 32 (5-40) units/L ALT 18 (7-56) units/L Alkaline Phosphatase 84 (35-129) units/L Total Creatine Kinase 627 H (30-135) units/L Troponin T < 0.010 (0.00-0.029) ng/mL Total Protein 6.8 (6.3-8.2) g/dL Albumin 3.5 L (3.9-5) g/dL Albumin/Globulin Ratio 1.1 % Vital Signs 08/04/20 08/04/20 08:55 09:33 Temperature 98.5 F Pulse Rate 97 H Respiratory 20 22 Rate Blood Pressure 130/70 O2 Sat by Pulse [address] noted. Patient can open and close her mouth without difficulty she is not endorsing jaw pain. Twelve-lead EKG x2 with no acute changes. Chest/rib x-ray, wrist and leg x-ray all negative for acute process. Labs noted. CK is elevated. Troponin is negative. Creatinine is normal. UA is currently pending. We will give gentle diuresis. UA is pending at 1500. Patient does not endorse any dysuria. She denies nausea vomiting or diarrhea. Patient staffed with Dr. Daniels. Patient will be admitted to [facility] further evaluation. Patient updated on plan of care. RN aware. - Differential Diagnosis RO FX RIB/? ETIOLOGY OF FALL Critical care attestation.: If time is entered above; I have spent that time in minutes in the direct care of this critically ill patient, excluding procedure time. ED Disposition Clinical Impression: Fall, Chest pain, Syncope, Rib pain on right side, Leg pain, Right leg pain Disposition: OP ADMIT IP TO THIS HOSP Is pt being admited?: Yes Does the pt Need Aspirin: No Condition: Stable Instructions: Nonspecific Chest Pain, Adult, Syncope (ED) Referrals: PRIMARY CARE, [Primary Care Provider] - 3-5 Days Time of Disposition: 10:00
--- NOTE | 2020-08-04 10:02 | XRay Report ---
BILATERAL RIBS 7 VIEWS INDICATION: Chest pain after fall. COMPARISON: One view of the chest dated 01/07/2018. FINDINGS: RIBS: No acute, displaced fracture or other acute abnormality. CHEST: No acute findings. No pneumothorax. ADDITIONAL FINDINGS: There is mild thoracic aortic atherosclerosis. An S-shaped curvature of the spin e is noted with generalized moderate spondylosis. IMPRESSION: No acute abnormality of the ribs. Signer Name: Helio Ring MD Signed: 08/04/2020 9:58 AM Workstation Name: [id number]
[2020-08-04 11:15] LABS: Basophils # (Auto) 0.1 K/mm3 (0.0-0.1); Basophils % (Auto) 0.6 % (0.0-1.8); Eosinophils # (Auto) 0.1 K/mm3 (0.0-0.4); Eosinophils % (Auto) 0.7 % (0.0-4.3); Hematocrit 42.9 % (30.3-42.9); Hemoglobin 14.8 gm/dl (10.1-14.3); Lymphocytes # (Auto) 1.3 K/mm3 (1.2-5.4); Mean Corpuscular HGB Conc 35 % (30-34); Mean Corpuscular Volume 89 fl (79-97); Monocytes # (Auto) 0.8 K/mm3 (0.0-0.8); Monocytes % (Auto) 10.1 % (0.0-7.3); Platelet Count 269 K/mm3 (140-440); Red Blood Count 4.82 M/mm3 (3.65-5.03)
[2020-08-04 11:43] LABS: Alanine Aminotransferase 18 units/L (7-56); Albumin 3.5 g/dL (3.9-5); Blood Urea Nitrogen 7 mg/dL (7-17); Hemolysis Index 3
[2020-08-04 11:46] LABS: BUN/Creatinine Ratio 18
--- NOTE | 2020-08-04 12:51 | XRay Report ---
RIGHT WRIST 2 VIEW(S) INDICATION / CLINICAL INFORMATION: FALL with wrist pain COMPARISON: None available. FINDINGS: BONES / JOINT(S): No acute fracture or subluxation. Moderate degenerative arthrosis of the triscaphe and thumb CMC joints. Subjective osteopenia. SOFT TISSUES: Mild soft tissue swelling on the dorsum of the wrist. ADDITIONAL FINDINGS: None. Signer Name: Dana Gong MD Signed: 08/04/2020 12:47 PM Workstation Name: [id number]
--- NOTE | 2020-08-04 12:52 | XRay Report ---
Right tibia and fibula 2 views INDICATION: Fall FINDINGS: Patellofemoral degenerative change. Tibia and fibula appear intact. No acute fractures seen . No focal soft tissue abnormality. Signer Name: Jonathon Barrientos MD Signed: 08/04/2020 12:47 PM Workstation Name: [email or web address]
--- NOTE | 2020-08-04 14:58 | Cat Scan Report ---
CT HEAD WITHOUT CONTRAST INDICATION / CLINICAL INFORMATION: Patient fell. Dizziness. TECHNIQUE: All CT scans at this location are performed using CT dose reduction for ALARA by means of automated e xposure control. COMPARISON: None available. LIMITATIONS: Patient motion artifact degrades image quality and is a limiting factor on this examinat ion. FINDINGS: HEMORRHAGE: No evidence of intracranial hemorrhage or extra-axial fluid collection. EXTRA-AXIAL SPACES: Cortical sulci and sylvian fissures are enlarged reflecting a degree of parenchym al volume loss which is prominent given the patient's age of 75 years. Basilar cisterns have an unrem arkable appearance. VENTRICULAR SYSTEM: The third and lateral ventricles are enlarged reflecting presence of age related parenchymal volume loss. CEREBRAL PARENCHYMA: Periventricular and deep white matter lucency is observed. This is probably seco ndary to microvascular ischemic change. There is no indication of recent infarction. No areas of ence phalomalacia are identified. MIDLINE SHIFT OR HERNIATION: There is no mass effect. CEREBELLUM / BRAINSTEM: Brainstem has an unremarkable appearance. Age related cerebellar atrophy is n oted. MIDLINE STRUCTURES:Pituitary gland has an unremarkable appearance. No abnormalities are seen in the p ineal region. INTRACRANIAL VESSELS:Calcified atherosclerotic plaque is present along the course of the cavernous se gments of both internal carotid arteries. ORBITS: visualized portions of the orbits have an unremarkable appearance. SOFT TISSUES of HEAD: No significant abnormality. CALVARIUM: Evaluation of bone windows reveals no abnormalities. PARANASAL SINUSES / MASTOID AIR CELLS: Paranasal sinuses are free from inflammatory mucosal disease. Mastoid air cells are normally pneumatized. ADDITIONAL FINDINGS: Temporomandibular joints have an asymmetrical appearance. The left mandibular co ndyles well-seated in the articular fossa. Advanced osteoarthritic changes are seen on the left. On t he right the condylar head is located anterior to the articular fossa adjacent to the articular emine nce. Correlation with mandibular range of motion evaluation is suggested. IMPRESSION: 1. Advanced age-related involutional changes of atrophy and microvascular ischemia. 2. No acute intracranial abnormality. 3. Asymmetrical location of the mandibular condyles with respect to the articular fossa as described above. Correlation with evaluation of mandibular range of motion is suggested. CT facial bones could be considered for further evaluation. Signer Name: Josh Cordon MD Signed: 08/04/2020 2:53 PM Workstation Name: [email or web address]
[2020-08-04] MEDS ORDERED: HYDROmorphone 1 MG/1 ML INJ IV ONE (15:50)
[2020-08-04] MEDS ORDERED: SODIUM CHLORIDE 0.9% 500 ML 500 ML IV SCH (16:00)
[2020-08-04] MEDS ORDERED: LACTULOSE 20 GM/30 ML ORAL LIQD PO ONE (20:58)
[2020-08-04] MEDS ORDERED: ZOLPIDEM 5 MG TAB PO PRN (20:58)
[2020-08-04] MEDS ORDERED: oxyCODONE /ACETAMINOPHEN 5-325MG TAB PO PRN (20:59)
[2020-08-04] MEDS ORDERED: ACETAMINOPHEN 325 MG TAB PO PRN (20:59)
[2020-08-05] MEDS ORDERED: ACETAMINOPHEN 325 MG TAB PO PRN (02:34)
[2020-08-05] MEDS ORDERED: MORPHINE 2 MG/1 ML INJ IV PRN (02:34)
[2020-08-05] MEDS ORDERED: ONDANSETRON 4 MG/2 ML INJ IV PRN (02:34)
[2020-08-05] MEDS ORDERED: METOCLOPRAMIDE 10 MG/2 ML INJ IV PRN (02:34)
--- NOTE | 2020-08-05 02:37 | History and Physical Report ---
History of Present Illness Date of examination: 08/04/20 Date of admission: 08/04/20 15:14 Chief complaint: Chest pain after fall Syncope 4 days ago History of present illness: 75-year-old female that comes to the emergency room today complaining of right rib pain after a fall. She apparently passed out on Sunday which was 4 days ago. Local chest wall pain on palpitation.Increases with deep breaths. {ain is 8 - Past Medical History Previous Medical History?: Yes Copd Essential tremor GERD Hld - Surgical History Past Surgical History?: Yes --Cholecystectomy: Yes - Family History Family history: other (MOM DEC ALZ DEMENTIA AND DAD DEC LUNG DISEASE) - Social History Smoking Status: Former Smoker (STOPPED 3 Y AGO) Substance Use Type: None - Medications Home Medications: Home Medications Medication Instructions Recorded Confirmed Last Taken Type Primidone [Mysoline] 250 mg PO BID 01/07/18 11/16/18 Unknown History AtorvaSTATin [Lipitor] 40 mg PO QHS #30 tab 01/09/18 11/16/18 Unknown Rx Famotidine [Pepcid] 20 mg PO BID #60 tablet 01/09/18 11/16/18 Unknown Rx Fluticasone/Salmeterol [Advair 1 puff IH BID #1 disk.w.dev 01/09/18 11/16/18 Unknown Rx Diskus 250-50 mcg] Review of Systems ROS: Stated complaint: FALL today Rt Chest wall pain Syncope 4 days ago Other details as noted in HPI Comment: All other systems reviewed and negative Medications and Allergies Allergies Allergy/AdvReac Type Severity Reaction Status Date / Time aspirin Allergy Unknown Verified 01/07/18 21:52 Home Medications Medication Instructions Recorded Confirmed Last Taken Type Primidone [Mysoline] 250 mg PO BID 01/07/18 11/16/18 Unknown History AtorvaSTATin [Lipitor] 40 mg PO QHS #30 tab 01/09/18 11/16/18 Unknown Rx Famotidine [Pepcid] 20 mg PO BID #60 tablet 01/09/18 11/16/18 Unknown Rx Fluticasone/Salmeterol [Advair 1 puff IH BID #1 disk.w.dev 01/09/18 11/16/18 Unknown Rx Diskus 250-50 mcg] Active Meds: Active Medications Acetaminophen (Acetaminophen 325 Mg Tab) 650 mg PO Q6H PRN PRN Reason: Pain, Mild (1-3) Last Admin: 08/04/20 21:55 Dose: 650 mg Documented by: Acetaminophen (Acetaminophen 325 Mg Tab) 650 mg PO Q4H PRN PRN Reason: Pain MILD(1-3)/Fever >100.5/DEMPSEY Atorvastatin Calcium (Atorvastatin 40 Mg Tab) 40 mg PO QHS DORIS Famotidine (Famotidine 20 Mg Tab) 20 mg PO BID DORIS Famotidine (Famotidine 20 Mg Tab) 20 mg PO BID DORIS Sodium Chloride (Nacl 0.9% 500 Ml) 500 mls @ 100 mls/hr IV DIRECT DORIS Last Admin: 08/04/20 21:56 Dose: 100 mls/hr Documented by: Sodium Chloride (Nacl 0.9% 1000 Ml) 1,000 mls @ 100 mls/hr IV DIRECT DORIS Metoclopramide HCl (Metoclopramide 10 Mg/2 Ml Inj) 10 mg IV Q6H PRN PRN Reason: Nausea And Vomiting Miscellaneous Medication (Fluticasone/Salmeterol [Advair Diskus 250-50 Mcg]) 1 puff IH BID DORIS Morphine Sulfate (Morphine 2 Mg/1 Ml Inj) 2 mg IV Q4H PRN PRN Reason: Pain, Moderate (4-6) Ondansetron HCl (Ondansetron 4 Mg/2 Ml Inj) 4 mg IV Q8H PRN PRN Reason: Nausea And Vomiting Oxycodone/Acetaminophen (Oxycodone /Acetaminophen 5-325mg Tab) 1 tab PO Q6H PRN PRN Reason: Pain, Moderate (4-6) Primidone (Primidone 250 Mg Tab) 250 mg PO BID DORIS Sodium Chloride (Sodium Chloride 0.9% 10 Ml Flush Syringe) 10 ml IV BID DORIS Sodium Chloride (Sodium Chloride 0.9% 10 Ml Flush Syringe) 10 ml IV PRN PRN PRN Reason: LINE FLUSH Zolpidem Tartrate (Zolpidem 5 Mg Tab) 5 mg PO QHS PRN PRN Reason: Sleep Last Admin: 08/04/20 21:56 Dose: 5 mg Documented by: Exam - Constitutional Vitals: Temp Pulse Resp BP Pulse Ox 98.1 F 94 H 28 H 150/101 95 08/04/20 20:33 08/04/20 20:33 08/04/20 20:33 08/04/20 20:33 08/04/20 20:33 General appearance: Present: no acute distress, well-nourished - EENT Eyes: Present: PERRL ENT: hearing intact, clear oral mucosa - Neck Neck: Present: supple, normal ROM - Respiratory Respiratory effort: normal Respiratory: right: other (Chest wall tenderness -severe anteriorly and Rt ), bilateral: CTA - Cardiovascular Heart rate: 78 Rhythm: regular Heart Sounds: Present: S1 & S2. Absent: rub, click - Extremities Extremities: pulses symmetrical, No edema Peripheral Pulses: within normal limits - Abdominal General gastrointestinal: Present: soft, non-tender, non-distended, normal bowel sounds Female genitourinary: Present: normal - Integumentary Integumentary: Present: clear, warm, dry - Musculoskeletal Musculoskeletal: gait normal, strength equal bilaterally - Psychiatric Psychiatric: appropriate mood/affect, intact judgment & insight - Neurologic Neurologic: CNII-XII intact, moves all extremities HEART Score - HEART Score History: Slightly suspicious EKG: Non-specific Age: > 65 Risk factors: 1-2 risk factors Troponin: Troponin T < 0.010 ng/mL (0.00-0.029) 08/04/20 10:54 Troponin: < normal limit HEART Score: 4 - Critical Actions Critical Actions: 0-3 pts:0.9-1.7%risk of adverse cardiac event.Candidate for discharge Results - Labs CBC & Chem 7: 08/04/20 10:54 08/05/20 05:37 Labs: Laboratory Last Values WBC 7.9 K/mm3 (4.5-11.0) 08/04/20 10:54 RBC 4.82 M/mm3 (3.65-5.03) 08/04/20 10:54 Hgb 14.8 gm/dl (10.1-14.3) H 08/04/20 10:54 Hct 42.9 % (30.3-42.9) 08/04/20 10:54 MCV 89 fl (79-97) 08/04/20 10:54 MCH 31 pg (28-32) 08/04/20 10:54 MCHC 35 % (30-34) H 08/04/20 10:54 RDW 13.0 % (13.2-15.2) L 08/04/20 10:54 Plt Count 269 K/mm3 (140-440) 08/04/20 10:54 Lymph % (Auto) 17.0 % (13.4-35.0) 08/04/20 10:54 [place] % (Auto) 10.1 % (0.0-7.3) H 08/04/20 10:54 Eos % (Auto) 0.7 % (0.0-4.3) 08/04/20 10:54 Baso % (Auto) 0.6 % (0.0-1.8) 08/04/20 10:54 Lymph # (Auto) 1.3 K/mm3 (1.2-5.4) 08/04/20 10:54 [place] # (Auto) 0.8 K/mm3 (0.0-0.8) 08/04/20 10:54 Eos # (Auto) 0.1 K/mm3 (0.0-0.4) 08/04/20 10:54 Baso # (Auto) 0.1 K/mm3 (0.0-0.1) 08/04/20 10:54 Seg Neutrophils % 71.6 % (40.0-70.0) H 08/04/20 10:54 Seg Neutrophils # 5.7 K/mm3 (1.8-7.7) 08/04/20 10:54 Sodium 140 mmol/L (137-145) 08/04/20 10:54 Potassium 3.9 mmol/L (3.6-5.0) 08/04/20 10:54 Chloride 102.7 mmol/L (98-107) 08/04/20 10:54 Carbon Dioxide 31 mmol/L (22-30) H 08/04/20 10:54 Anion Gap 10 mmol/L 08/04/20 10:54 BUN 7 mg/dL (7-17) 08/04/20 10:54 Creatinine 0.4 mg/dL (0.6-1.2) L 08/04/20 10:54 Estimated GFR > 60 ml/min 08/04/20 10:54 BUN/Creatinine Ratio 18 % 08/04/20 10:54 Glucose 105 mg/dL (65-100) H 08/04/20 10:54 Calcium 9.0 mg/dL (8.4-10.2) 08/04/20 10:54 Total Bilirubin 0.80 mg/dL (0.1-1.2) 08/04/20 10:54 AST 32 units/L (5-40) 08/04/20 10:54 ALT 18 units/L (7-56) 08/04/20 10:54 Alkaline Phosphatase 84 units/L (35-129) 08/04/20 10:54 Total Creatine Kinase 627 units/L (30-135) H 08/04/20 10:54 Troponin T < 0.010 ng/mL (0.00-0.029) 08/04/20 10:54 Total Protein 6.8 g/dL (6.3-8.2) 08/04/20 10:54 Albumin 3.5 g/dL (3.9-5) L 08/04/20 10:54 Albumin/Globulin Ratio 1.1 % 08/04/20 10:54 - Imaging and Cardiology EKG: report reviewed (NSR ) Chest x-ray: report reviewed (No rib fx) CT Scan - head: report reviewed (NAF ) [place]/IV: Voiding Method External Female Catheter Assessment and Plan Advance Directives: Yes - Patient Problems (1) Chest pain Current Visit: Yes Status: Acute Qualifiers: Chest pain type: chest pain on breathing Qualified Code(s): R07.1 - Chest pain on breathing; R07.81 - Pleurodynia Plan to address problem: Chest wall contusion injury No Lexiscan ordered Troponis ordered but expect them to be ormal (2) Syncope Current Visit: Yes Status: Acute Qualifiers: Syncope type: vasovagal syncope Qualified Code(s): R55 - Syncope and collapse Plan to address problem: Syncope work up (3) COPD (chronic obstructive pulmonary disease) Current Visit: No Status: Chronic Qualifiers: Plan to address problem: Cont advair (4) Malnutrition Current Visit: No Status: Chronic Qualifiers: Protein-calorie malnutrition severity: mild (5) GERD (gastroesophageal reflux disease) Current Visit: No Status: Chronic Qualifiers: Esophagitis presence: with esophagitis Plan to address problem: On Famotidine (6) HLD (hyperlipidemia) Current Visit: Yes Status: Chronic Qualifiers: Hyperlipidemia type: mixed hyperlipidemia Qualified Code(s): E78.2 - Mixed hyperlipidemia Plan to address problem: On Statins (7) DVT prophylaxis Current Visit: Yes Status: Acute Plan to address problem: On Heparin and GI prophylaxis
[2020-08-05] MEDS ORDERED: SODIUM CHLORIDE 0.9% 1000 ML 1,000 ML IV SCH (02:45)
[2020-08-05] MEDS: PRIMIDONE 250 MG TAB PO SCH ×2 (05:49→09:24)
[2020-08-05 06:38] LABS: BUN/Creatinine Ratio TNR; Blood Urea Nitrogen TNR mg/dL (7-17)
[2020-08-05 06:39] LABS: Calcium TNR mg/dL (8.4-10.2); Hemolysis Index TNR
[2020-08-05 08:04] LABS: Bilirubin,Urine NEG (Negative); Blood,Urine NEG (Negative); Calcium Oxalate Crystals,Urine 1+; Color,Urine Amber (Yellow)
[2020-08-05] MEDS ORDERED: FAMOTIDINE 20 MG TAB PO SCH ×2 (10:00)
[2020-08-05] MEDS ORDERED: NON-FORMULARY EACH (Fluticasone/Salmeterol [Advair Diskus 250-50 Mcg] 1 EACH Blst.W.Dev) IH SCH (10:00)
[2020-08-05] MEDS ORDERED: FLU VACC QUAD 2020-2021 (6 months +)/PF 60 0.5 ML SYRINGE IM ONE (12:00)
--- NOTE | 2020-08-05 13:46 | Discharge Summary ---
Providers - Providers Date of Admission: 08/04/20 15:14 Date of discharge: 08/05/20 Attending physician: NIKKO JUAN 08/05/20 02:34 Physical Therapy Evaluation and Treat [CONS] Routine Comment: Reason For Exam: Debility Primary care physician: [employer] Hospitalization Condition: Stable Disposition: DC/[place]-06 HOME UNDER HOME HL Final Discharge Diagnosis (Prints w/discharge instructions): Vasovagal syncope, atypical chest pain likely musculoskeletal, COPD, GERD Time spent for discharge: 34 minutes Core Measure Documentation - Palliative Care Palliative Care/ Comfort Measures: Not Applicable - Core Measures Any of the following diagnoses?: none Exam - Constitutional Vitals: Temp Pulse Resp BP Pulse Ox 97.4 F L 82 20 157/84 92 08/05/20 08:00 08/05/20 08:00 08/05/20 08:00 08/05/20 08:00 08/05/20 08:00 Plan Activity: advance as tolerated Weight Bearing Status: Weight Bear as Tolerated Follow up with: GINA SHOOK MD [Primary Care Provider] - 3-5 Days HUGO STEVE MD [Staff Physician] - 7 Days Prescriptions: HYDROcodone/APAP 5-325 [[place] 5/325] 1 each PO Q6HR PRN #10 tablet PRN Reason: Pain Pantoprazole [Protonix] 40 mg PO QDAY #30 tablet Metoclopramide HCl [Reglan TAB] 5 mg PO TIDAC #20 tablet
--- NOTE | 2020-08-05 13:56 | Vascular Lab Report ---
VL carotid duplex BILAT INDICATION / CLINICAL INFORMATION: Syncope. COMPARISON: None available. FINDINGS: Mild plaque formation is demonstrated at both bifurcations, but velocity measurements and waveform an alysis indicate less than 50% stenosis of each internal carotid artery, according to NASCET criteria. Normal antegrade flow is demonstrated in both vertebral arteries. IMPRESSION: 1. No hemodynamically significant stenosis. Signer Name: Jj Wilkes MD Signed: 08/05/2020 1:51 PM Workstation Name: [id number]
--- NOTE | 2020-08-05 15:41 | XRay Report ---
CHEST 1 VIEW 08/05/2020 2:28 PM INDICATION / CLINICAL INFORMATION: pain. COMPARISON: None available. FINDINGS: SUPPORT DEVICES: None. HEART / MEDIASTINUM: The superior mediastinum of the thoracic inlet is slightly prominent and widened . LUNGS / PLEURA: Left lower lung atelectasis with small effusion No pneumothorax. ADDITIONAL FINDINGS: No significant additional findings. IMPRESSION: 1. Mild prominence of the superior mediastinum may represent enlarged thyroid however nonspecific. Fo llow-up could be performed. 2. Left lower lung atelectasis with small effusion. Signer Name: Jonathon Barrientos MD Signed: 08/05/2020 3:36 PM Workstation Name: [email or web address]
[2020-08-05 16:58] VITALS: BP 137/82
[2020-08-05] MEDS: ARFORMOTEROL 15 MCG/2 ML NEBU IH SCH ×2 (20:00→20:09)
[2020-08-05] MEDS: BUDESONIDE 0.5 MG/2 ML NEBU IH SCH ×2 (20:00→20:09)
--- NOTE | 2020-08-06 11:18 | Electrocardiograph Report ---
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
--- NOTE | 2020-08-06 11:19 | Electrocardiograph Report ---
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
== END 2020-08-05 23:41 | disposition home health service (06) ==
LOC: ED 08:49 → 4A 15:14
PROVIDERS: ADMIT Internal Medicine; ATTEND Internal Medicine
DX: R07.89 Other chest pain (principal); R55 Syncope and collapse; J44.9 Chronic obstructive pulmonary disease, unspecified; K21.9 Gastro-esophageal reflux disease without esophagitis; E78.5 Hyperlipidemia, unspecified; E46 Unspecified protein-calorie malnutrition; M19.90 Unspecified osteoarthritis, unspecified site; M79.661 Pain in right lower leg; Z87.891 Personal history of nicotine dependence; Z68.39 Body mass index [BMI] 39.0-39.9, adult; Z79.899 Other long term (current) drug therapy; W19.XXXA Unspecified fall, initial encounter; Y92.89 Other specified places as the place of occurrence of the external cause; Y93.89 Activity, other specified; Y99.8 Other external cause status
CPT/HCPCS: 36415; 70450; 71045; 71110; 73100; 73590; 80048; 80053; 81001; 82550; 83036; 84484; 85025; 93005; 93306; 93880; 96361; 96374; 96375; 97162; 99285; G0378; J1170; J2765; J7030; J7040